=== PATIENT | female | born 1955 | race Caucasian/White ===

== ENCOUNTER 2017-05-12 16:54 | Emergency (ER) | payer OTHER ==
[~2017-05-12] VITALS: Ht 157.5 cm; Wt 68.5 kg
[~2017-05-12 16:54] MED LIST: CETI10CA PO; FLUT9.9S NASAL; GUAI118L94 PO; LISI-313 PO; METF500T4 PO; NITR-58 PO; ZOC10 PO
[2017-05-12 17:15] VITALS: Ht 157.5 cm; Wt 68.5 kg
--- NOTE | 2017-05-12 18:46 | RADRPT ---
PROCEDURE: XR Chest. CLINICAL INDICATION: Cough. TECHNIQUE: Single frontal view of the chest. COMPARISON: 10/04/2015. FINDINGS: The cardiomediastinal silhouette is within normal limits. Decreased lung inflation over the interval , with accentuate pulmonary vascular markings. lungs are clear. No signs of pleural fluid or pneumot horax are seen. The osseous structures and soft tissues are unremarkable. IMPRESSION: No evidence for active cardiopulmonary disease. RPTAT: [facility] Physician La Date Time Electronically viewed and signed by Physician La on 05/12/2017 18:46 RS/
[2017-05-12] MEDS ORDERED: MED4DP PO (18:51)
[2017-05-12] MEDS ORDERED: D-ME473S2 PO (18:52)
--- NOTE | 2017-05-12 18:57 | ERD ---
ER Documentation Chief Complaint Date/Time DATE: 05/12/17 TIME: 18:56 Chief Complaint COUGH & CONGESTION [id number] HPI This is a 61-year-old female presents to the ER with a dry cough for the last week. Patient denies any chest pain shortness of breath. Cough is worse at night. She also complains of a sore throat. She denies any ear pain. There are no sick contacts at home. Patient has not tried anything for her cough. ROS 12 point review of systems was done, all negative except per HPI. Medications Home Meds Active Scripts Dextromethorphan Hb-Promethazine Hcl* (Promethazine DM* Syrup) 473 Ml Syrup, 10 ML PO Q6 Y for COUGH for 3 Days, ML Prov:NGUYEN SEVERINO 05/12/17 Methylprednisolone* (Medrol* DOSE PACK) 4 Mg/Dose-Pack Tab.ds.pk, 4 MG PO . DIRECTED for 6 Days, PACKET Prov:NGUYEN SEVERINO 05/12/17 Fluticasone Propionate (Flonase Allergy Relief) 9.9 Ml [place].susp, 1 SPRAY NASAL BID, #1 BOTTLE TO EACH NOSTRIL Prov:MONE NICOLE ENTERER 10/04/15 Cetirizine Hcl* (Zyrtec*) 10 Mg Capsule, 10 MG PO DAILY, #30 TAB.CHEW Prov:MONE NICOLE ENTERER 10/04/15 Guaifenesin-Codeine Phosphate* (Guaifenesin* with Codeine Liq) 120 Ml Liquid, 5 ML PO Q4H for COUGH, #60 ML Prov:MONE NICOLE ENTERER 10/04/15 Nitrofurantoin Monohyd Macrocr* (Macrobid*) 100 Mg Capsr, 100 MG PO BID for 7 Days, CAP Prov:KAUSHAL JACOBSON ENTERER 09/11/15 Reported Medications Simvastatin (Simvastatin) Unknown Strength Tablet, PO DAILY, #30 TAB 10/04/15 Lisinopril* (Lisinopril*) Unknown Strength Tablet, PO DAILY, #30 TAB 10/04/15 Metformin* (Glucophage*) 500 Mg Tab, 500 MG PO BID 03/24/11 Allergies Allergies: Coded Allergies: ciprofloxacin (Verified Allergy, vomitting, 05/02/13) PMhx/Soc History of Surgery: No Anesthesia Reaction: No Hx Neurological Disorder: No Hx Respiratory Disorders: No Hx Cardiac Disorders: Yes (htn) Hx Psychiatric Problems: No Hx Miscellaneous Medical Probl: Yes (dyslipidemia dm, ) Hx Alcohol Use: No Hx Substance Use: No Hx Tobacco Use: No Smoking Status: Never smoker Physical Exam Vitals Vital Signs Date Time Temp Pulse Resp B/P Pulse Ox O2 Delivery O2 Flow Rate FiO2 05/12/17 17:15 98.8 62 18 120/62 99 Physical Exam GENERAL: The patient is well-developed, well-nourished, in no acute distress. NECK: Cervical spine is non tender with no step off. Supple, no nuchal rigidity HEENT: Atraumatic. Pupils equal, round and reactive to light. Extraocular muscles are grossly intact. Conjunctivae pink, no discharge. Bilateral tympanic membranes are clear with no evidence of erythema, effusion or dulling of the light reflex. Tonsilar erythema with no exudates or uvular deviation. Clear rhinorrhea. RESPIRATORY: Clear to auscultation bilaterally. There are no rales, wheezes or rhonchi. HEART: Regular rate and rhythm. No murmurs, clicks, rubs or gallops. EXTREMITIES: No clubbing or cyanosis. Full range of motion. Grossly neurovascularly intact. NEUROLOGIC: Alert and oriented. Cranial nerves II through XII are intact. SKIN: There is no rash. The skin is warm and dry. Procedures/MDM Differential diagnosis includes but is not limited to; Viral URI, allergic rhinitis, bronchitis, pertussis,pneumonia. This is likely viral in etiology. Clinical suspicion for pneumonia is low as patient appears well, is not hypoxic or in any respiratory distress. Additionally, patients physical examination is benign. Plan was discussed with patient they understand and agree. Patient needs to follow up with PCP in 1-2 days or return to ER sooner if symptoms worsen. Departure Diagnosis: Primary Impression: Upper respiratory infection Condition: Stable Patient Instructions: Uri, Viral, No Abx (Adult) Additional Instructions: Call your primary care doctor TOMORROW for an appointment during the next 1-2 days.See the doctor sooner or return here if your condition worsens before your appointment time. NGUYEN SEVERINO May 12, 2017 18:57
== END 2017-05-12 18:53 | disposition home or self-care (01) ==
LOC: FTE 16:54
DX: J06.9 Acute upper respiratory infection, unspecified (principal); I10 Essential (primary) hypertension; E11.9 Type 2 diabetes mellitus without complications; Z79.84 Long term (current) use of oral hypoglycemic drugs
CPT/HCPCS: 71010; Z7502

== ENCOUNTER 2017-10-10 17:35 | Emergency (ER) | END 2017-10-10 20:15 | disposition home or self-care (01) ==